=== PATIENT | female | born 1965 | race Caucasian/White ===

== ENCOUNTER 2017-11-22 06:29 | Day surgery (SDC) | payer MEDICARE ==
[2017-11-22] MEDS ORDERED: Sodium Chloride 0.9% 10 ML Syringe FLUSH PRN (06:45)
[2017-11-22] MEDS ORDERED: Lactated Ringers 1,000 ML IV SCH (06:45)
[2017-11-22] MEDS ORDERED: Propofol 200 MG/20 ML SDV IV ONE (08:00)
--- NOTE | 2017-11-22 08:33 | PCM.OPNOTE ---
- General Post-Op/Procedure Note Date of Surgery/Procedure: 11/22/17 Operative Procedure(s): c scope Findings: normal scope Pre Op Diagnosis: screening Post-Op Diagnosis: nl study Anesthesia Technique: MAC Primary Surgeon: Pankaj Rojas Anesthesia Provider: Antolin Bustillo Complications: None Condition: Good Free Text/Narrative:: see dictation #[id number]
[2017-11-22 09:15] VITALS: BP 123/66
--- NOTE | 2017-11-22 14:46 | OR ---
DATE OF OPERATION: 11/22/2017 SURGEON: Pankaj Rojas MD PROCEDURE PERFORMED: Colonoscopy. PREOPERATIVE DIAGNOSIS: Need for screening C scope. POSTOPERATIVE DIAGNOSIS: Normal study. INDICATIONS FOR PROCEDURE: This is a 52-year-old white female referred for initial screening colonoscopy. She was offered and accepted same. DESCRIPTION OF OPERATION: After an excellent IV sedation was administered, digital rectal exam was performed. No marked abnormality was noted. Flexible colonoscope was inserted and advanced to the cecum without difficulty. The prep was excellent. The following findings were noted. Ascending colon, unremarkable. Transverse colon, unremarkable. Descending colon, unremarkable. Sigmoid and rectum unremarkable. Colon was deflated as the scope was removed. The patient tolerated the procedure well and was taken to recovery room in good condition. Repeat scope in 10 years. /[id number] /MODL
== END 2017-11-22 09:22 | disposition home or self-care (01) ==
LOC: FB.SDS 06:29
PROVIDERS: ATTEND Surgery
DX: Z12.11 Encounter for screening for malignant neoplasm of colon (principal); I10 Essential (primary) hypertension; M79.7 Fibromyalgia; M17.11 Unilateral primary osteoarthritis, right knee; E66.01 Morbid (severe) obesity due to excess calories; Z68.42 Body mass index [BMI] 45.0-49.9, adult; Z79.52 Long term (current) use of systemic steroids; Z79.899 Other long term (current) drug therapy; Z88.5 Allergy status to narcotic agent
CPT/HCPCS: 00812; 36415; 80048; G0121; J2704; J7120

== ENCOUNTER 2021-07-22 14:02 | Inpatient (IN) | payer MEDICARE ==
[2021-07-22] MEDS ORDERED: Vancomycin 1 GM SDV IV SCH (15:00)
[2021-07-22] MEDS: Promethazine 25 MG Tab PO PRN (15:26)
[2021-07-22] MEDS: Ibuprofen 800 MG Tab PO PRN ×2 (15:26→22:13)
[2021-07-22] MEDS: Acetaminophen 325 MG Tab PO PRN ×2 (15:27→22:14)
[2021-07-22] MEDS: Piperacillin/Tazobactam 3.375 GM in Sodium Chloride 0.9% 50 ML IV SCH ×2 (15:28→22:05)
[2021-07-22] MEDS ORDERED: Albuterol 0.083% 2.5 MG/3 ML Neb Soln NEB PRN (15:34)
[2021-07-22] MEDS ORDERED: Benzonatate 100 MG Cap PO PRN (15:34)
[2021-07-22] MEDS ORDERED: VANCOmycin 1.5 GM/300 ML 300 ML IV ONE (16:00)
[2021-07-22] MEDS: Gabapentin 600 MG Tab PO SCH ×2 (17:18→20:27)
[2021-07-22] MEDS: Baclofen 10 MG Tab PO SCH ×2 (17:18→20:27)
[2021-07-22] MEDS: Sodium Chloride 0.9% 1,000 ML IV SCH (20:24)
[2021-07-23] MEDS: VANCOmycin 1.5 GM/300 ML 300 ML IV SCH ×2 (04:00→15:59)
[2021-07-23] MEDS: Ibuprofen 800 MG Tab PO PRN ×3 (05:36→20:11)
[2021-07-23] MEDS: Acetaminophen 325 MG Tab PO PRN ×3 (05:37→20:11)
[2021-07-23] MEDS: Sodium Chloride 0.9% 1,000 ML IV SCH ×2 (05:38→20:14)
[2021-07-23] MEDS: Piperacillin/Tazobactam 3.375 GM in Sodium Chloride 0.9% 50 ML IV SCH ×3 (06:08→21:52)
[2021-07-23] MEDS ORDERED: Potassium Chloride 10 MEQ Tab.ER PO SCH (09:00)
[2021-07-23] MEDS ORDERED: Water For Irrigation,Sterile 1,000 ML Container IRR SCH (09:00)
[2021-07-23] MEDS ORDERED: Potassium Chloride 20 MEQ Packet PO SCH (09:00)
[2021-07-23] MEDS: Promethazine 25 MG Tab PO PRN (09:11)
[2021-07-23] MEDS: Metoprolol Succinate 100 MG Tab.ER PO SCH (09:15)
[2021-07-23] MEDS: Lisinopril 20 MG Tab PO SCH (09:22)
[2021-07-23] MEDS: Acetaminophen/oxyCODONE 325-5 MG Tab PO PRN (09:26)
[2021-07-23] MEDS: Enoxaparin 40 MG/0.4 ML Syringe SUBCUT SCH (11:22)
[2021-07-23] MEDS: Baclofen 10 MG Tab PO SCH ×2 (14:46→20:10)
[2021-07-23] MEDS: Gabapentin 600 MG Tab PO SCH ×2 (14:47→20:10)
[2021-07-23] MEDS: Potassium Chloride 10 MEQ Tab.ER PO SCH (20:10)
[2021-07-24] MEDS: VANCOmycin 1.5 GM/300 ML 300 ML IV SCH (04:17)
[2021-07-24] MEDS: VANCOmycin 1 GM/200 ML 1 GM in Premix Bag 1 BAG IV SCH ×2 (04:30→16:54)
[2021-07-24] MEDS: Piperacillin/Tazobactam 3.375 GM in Sodium Chloride 0.9% 50 ML IV SCH ×3 (06:00→22:20)
[2021-07-24] MEDS: Ibuprofen 800 MG Tab PO PRN ×2 (06:15→19:23)
[2021-07-24] MEDS: Acetaminophen 325 MG Tab PO PRN (06:16)
[2021-07-24] MEDS: Sodium Chloride 0.9% 1,000 ML IV SCH ×2 (08:32→21:01)
[2021-07-24] MEDS: Potassium Chloride 10 MEQ Tab.ER PO SCH ×2 (08:41→21:28)
[2021-07-24] MEDS: Enoxaparin 40 MG/0.4 ML Syringe SUBCUT SCH (08:41)
[2021-07-24] MEDS: Metoprolol Succinate 100 MG Tab.ER PO SCH (08:42)
[2021-07-24] MEDS: Lisinopril 20 MG Tab PO SCH (08:42)
[2021-07-24] MEDS: Gabapentin 600 MG Tab PO SCH ×2 (14:53→21:32)
[2021-07-24] MEDS: Baclofen 10 MG Tab PO SCH ×2 (14:53→21:28)
[2021-07-24] MEDS: Acetaminophen/oxyCODONE 325-5 MG Tab PO PRN (22:18)
[2021-07-24] MEDS: Promethazine 25 MG Tab PO PRN (22:19)
[2021-07-25] MEDS: VANCOmycin 1 GM/200 ML 1 GM in Premix Bag 1 BAG IV SCH (04:47)
[2021-07-25] MEDS: Ibuprofen 800 MG Tab PO PRN ×2 (05:09→11:31)
[2021-07-25] MEDS: Acetaminophen 325 MG Tab PO PRN ×2 (05:10→11:31)
[2021-07-25] MEDS: Piperacillin/Tazobactam 3.375 GM in Sodium Chloride 0.9% 50 ML IV SCH (06:04)
[2021-07-25] MEDS: Potassium Chloride 10 MEQ Tab.ER PO SCH ×2 (08:11→20:29)
[2021-07-25] MEDS: Enoxaparin 40 MG/0.4 ML Syringe SUBCUT SCH (08:12)
[2021-07-25] MEDS: Lisinopril 20 MG Tab PO SCH (08:12)
[2021-07-25] MEDS: Metoprolol Succinate 100 MG Tab.ER PO SCH (08:15)
[2021-07-25] MEDS: Doxycycline 100 MG Tab PO SCH ×2 (10:50→17:35)
[2021-07-25] MEDS: Amoxicillin 500 MG Cap PO SCH ×2 (10:50→20:28)
[2021-07-25] MEDS: Gabapentin 600 MG Tab PO SCH ×2 (15:15→20:32)
[2021-07-25] MEDS: Baclofen 10 MG Tab PO SCH ×2 (15:15→20:29)
[2021-07-25] MEDS: Promethazine 25 MG Tab PO PRN (18:51)
[2021-07-26] MEDS: Ibuprofen 800 MG Tab PO PRN (03:51)
[2021-07-26] MEDS: Acetaminophen 325 MG Tab PO PRN (03:52)
[2021-07-26] MEDS: Doxycycline 100 MG Tab PO SCH (06:31)
[2021-07-26] MEDS: Promethazine 25 MG Tab PO PRN (07:52)
[2021-07-26] MEDS: Amoxicillin 500 MG Cap PO SCH (08:34)
[2021-07-26] MEDS: Enoxaparin 40 MG/0.4 ML Syringe SUBCUT SCH (08:34)
[2021-07-26] MEDS: Potassium Chloride 10 MEQ Tab.ER PO SCH (08:34)
[2021-07-26] MEDS: Lisinopril 20 MG Tab PO SCH (08:35)
[2021-07-26] MEDS: Metoprolol Succinate 100 MG Tab.ER PO SCH (08:37)
[2021-07-26 08:40] VITALS: BP 145/83; PULSE 73
== END 2021-07-26 09:40 | disposition home or self-care (01) | DRG 603 ==
LOC: FB.MS 14:15
PROVIDERS: ADMIT Family Medicine; ATTEND Student in an Organized Health Care Education/Training Program
DX: A46 Erysipelas (principal); Z68.41 Body mass index [BMI] 40.0-44.9, adult; M79.7 Fibromyalgia; M06.9 Rheumatoid arthritis, unspecified; M54.9 Dorsalgia, unspecified; E66.01 Morbid (severe) obesity due to excess calories; B95.5 Unspecified streptococcus as the cause of diseases classified elsewhere; I10 Essential (primary) hypertension; Z96.659 Presence of unspecified artificial knee joint; Z20.822 Contact with and (suspected) exposure to COVID-19; Z88.5 Allergy status to narcotic agent; Z79.899 Other long term (current) drug therapy; Z90.49 Acquired absence of other specified parts of digestive tract; Z90.710 Acquired absence of both cervix and uterus
CPT/HCPCS: 36415; 80048; 80053; 80202; 85025; 86140; 87040; A9270-GY; J1650; J2543; J3370; J7030; U0002

== ENCOUNTER 2022-03-24 22:01 | Emergency (ER) | payer MEDICARE ==
[2022-03-24] MEDS ORDERED: Sulfamethoxazole/Trimethoprim 800-160 MG Tab PO ONE (22:02)
[2022-03-24] MEDS ORDERED: Cephalexin 500 MG Cap PO ONE (22:02)
== END 2022-03-24 23:15 | disposition home or self-care (01) ==
LOC: FB.ED 22:01
DX: L03.211 Cellulitis of face (principal)
CPT/HCPCS: 99281; 99283; A9270

== ENCOUNTER 2025-06-16 10:54 | Emergency (ER) | payer MEDICARE ==
[2025-06-16 11:08] VITALS: BP 154/66; PULSE 67
== END 2025-06-16 12:20 | disposition home or self-care (01) ==
LOC: FB.ED 10:54
DX: S86.912A Strain of unspecified muscle(s) and tendon(s) at lower leg level, left leg, initial encounter (principal); I10 Essential (primary) hypertension; M06.9 Rheumatoid arthritis, unspecified; Z88.5 Allergy status to narcotic agent; Z90.49 Acquired absence of other specified parts of digestive tract; Z90.710 Acquired absence of both cervix and uterus; Z79.899 Other long term (current) drug therapy; W01.0XXA Fall on same level from slipping, tripping and stumbling without subsequent striking against object, initial encounter; X50.1XXA Overexertion from prolonged static or awkward postures, initial encounter
CPT/HCPCS: 73502-LT; 73562-LT; 99283